=== PATIENT | female | born 1930 | race Caucasian/White ===

== ENCOUNTER → 2017-07-02 | Outpatient (CLI) | payer OTHER ==
[~2017-07-02] MED LIST: IOPAMIDOL (ISOVUE 370) 100 ML BTL IV ONE
== END ==
LOC: FIMAGING 10:02
PROVIDERS: ATTEND Surgery
DX: I65.23 Occlusion and stenosis of bilateral carotid arteries (principal); I77.3 Arterial fibromuscular dysplasia
CPT/HCPCS: 70498; Q9967

== ENCOUNTER → 2017-09-04 | Outpatient (CLI) | payer OTHER | LOC: FIMAGING 13:30 | PROVIDERS: ATTEND Family Medicine | DX: M48.54XA Collapsed vertebra, not elsewhere classified, thoracic region, initial encounter for fracture (principal); R05 Cough ==

== ENCOUNTER → 2017-09-14 | Outpatient (CLI) | payer OTHER | LOC: FIMAGING 14:26 | PROVIDERS: ATTEND Family Medicine | DX: M48.54XA Collapsed vertebra, not elsewhere classified, thoracic region, initial encounter for fracture (principal) ==

== ENCOUNTER 2017-09-17 13:12 | Day surgery (SDC) | payer OTHER ==
--- NOTE | 2017-09-17 14:18 | PDANEPAE ---
ANE Past Medical History - Cardiovascular History Hx Hypertension: Yes Hx Arrhythmias: No Hx Chest Pain: No Hx Coronary Artery / Peripheral Vascular Disease: Yes Hx CHF / Valvular Disease: No Hx Palpitations: No - Pulmonary History Hx COPD: No Hx Asthma/Reactive Airway Disease: No Hx Recent Upper Respiratory Infection: Yes Hx Oxygen in Use at Home: No Hx Sleep Apnea: No Pulmonary History Comment: Bronchitis 07/2017-resolved - Neurologic History Hx Cerebrovascular Accident: No Hx Seizures: No Hx Dementia: No - Endocrine History Hx Diabetes: No - Renal History Hx Renal Disorders: No - Liver History Hx Hepatic Disorders: No - Neurological & Psychiatric Hx Hx Neurological and Psychiatric Disorders: No - Cancer History Hx Cancer: No - Congenital Disorder History Hx Congenital Disorders: No - GI History Hx Gastrointestinal Disorders: No - Chronic Pain History Chronic Pain: Yes (back-osteoporosis) - Surgical History Prior Surgeries: Kyphoplasty-2011. Endarterectomy-2009. C section- ANE Review of Systems Review of Systems: - Exercise capacity METS (RN): 4 METS ANE Patient History - Allergies Allergies/Adverse Reactions: No Known Allergies Allergy (Verified 09/11/17 17:05) - Home Medications Home Medications: Aspirin [Aspirin 325 mg (*)] 325 mg PO DAILY@14 05/20/16 [Last Taken 05/19/16 14 :00] Atorvastatin Calcium [Lipitor 40 mg (*)] 40 mg PO DAILY@1900 05/20/16 [Last Taken 05/19/16 19:00] Carboxymethylcell/Hypromellose [Genteal Gel Drops] 1 - 2 drops EACHEYE PRN PRN 05/20/16 [Last Taken Unknown] Cholecalciferol Vit D3 [Vitamin D3 2000 units tab (OTC)] 2,000 units PO DAILY [Last Taken 05/19/16] Cyanocobalamin [Vitamin B12 (*)] 1,000 mcg PO DAILY 05/20/16 [Last Taken ] Herbals/Supplements -Info Only 1 ea PO DAILY 05/20/16 [Last Taken 05/19/16] Levothyroxine [Synthroid 88 mcg (*)] 88 mcg PO DAILY06 05/20/16 [Last Taken 06:00] Losartan Potassium [Cozaar] 100 mg PO DAILY 05/20/16 [Last Taken 05/20/16] MOTRIN 200 mg PO PRN 09/11/17 [Last Taken Unknown] - Anes Hx Anes Hx: no prior problems - Smoking Hx Smoking Status: Never smoked - Family Anes Hx Family Hx Anesthesia Complications: None ANE Labs/Vital Signs - Vital Signs Height: 167.64 cm Weight: 63.503 kg ANE Physical Exam - Airway Neck exam: FROM Mouth exam: normal dental/mouth exam - Pulmonary Pulmonary: no respiratory distress, no rales or rhonchi, clear to auscultation - Cardiovascular Cardiovascular: regular rate and rhythym, no murmur, rub, or gallop - ASA Status ASA Status: II ANE Anesthesia Plan Anesthesia Plan: general endotracheal anesthesia
[2017-09-17] MEDS ORDERED: DEXAMETHASONE 10 MG/ML VIAL IVP ONE ×2 (14:21→14:25)
[2017-09-17] MEDS ORDERED: ceFAZolin 2 GM/SWFI 2 GM/20 ML SYR IVP ONE ×2 (14:21→14:25)
[2017-09-17] MEDS ORDERED: NS 1,000 ML IV ONE ×2 (14:21→14:25)
[2017-09-17] MEDS ORDERED: fentaNYL 100 MCG/2 ML INJ IVP PRN ×2 (14:25→15:25)
[2017-09-17] MEDS ORDERED: ALTEPLASE 2 MG VIAL IVP PRN (14:25)
[2017-09-17] MEDS ORDERED: NALOXONE HCL 0.4 MG/ML INJ IVP PRN ×2 (14:25→15:25)
[2017-09-17] MEDS ORDERED: HEPARIN 10,000 UNIT/10 ML MDV IVP PRN (14:25)
[2017-09-17] MEDS ORDERED: FLUMAZENIL 0.5 MG/5 ML MDV IVP PRN (14:25)
[2017-09-17] MEDS ORDERED: MIDAZOLAM 2 MG/2 ML VIAL IVP PRN (14:25)
[2017-09-17] MEDS ORDERED: PROTAMINE SULFATE 50 MG/5 ML VIAL IVP PRN (14:25)
[2017-09-17] MEDS ORDERED: MEPERIDINE 25 MG/ML SYR IVP PRN (14:25)
[2017-09-17] MEDS ORDERED: GLUCAGON HCL 1 MG VIAL IVP PRN (14:25)
[2017-09-17] MEDS ORDERED: fentaNYL 100 MCG/2 ML INJ ONE (14:49)
[2017-09-17] MEDS ORDERED: PROPOFOL 200 MG/20 ML VIAL ONE (14:49)
[2017-09-17] MEDS ORDERED: ONDANSETRON 4 MG/2 ML VIAL ONE (14:50)
[2017-09-17] MEDS ORDERED: DEXAMETHASONE 4 MG/ML VIAL ONE ×2 (14:50)
[2017-09-17] MEDS ORDERED: SUCCINYLCHOLINE CHLORIDE 200 MG/10 ML SYR IVP ONE (14:53)
[2017-09-17] MEDS ORDERED: ceFAZolin 1 GM VIAL ONE ×2 (14:54)
[2017-09-17] MEDS ORDERED: PROMETHAZINE HCL 25 MG/ML INJ IVP PRN (15:25)
[2017-09-17] MEDS ORDERED: ENALAPRILAT DIHYDRATE 1.25 MG/ML VIAL IVP PRN (15:25)
[2017-09-17] MEDS ORDERED: ONDANSETRON 4 MG/2 ML VIAL IVP PRN ×2 (15:25→16:19)
[2017-09-17] MEDS ORDERED: HYDROCODONE/APAP 5/325 TAB PO PRN (15:25)
[2017-09-17] MEDS ORDERED: PHENYLEPHRINE HCL 100 MCG/ML SYR ONE ×2 (15:25→15:53)
[2017-09-17] MEDS ORDERED: BUPIVACAINE 0.5% 30 ML SDV ONE (15:31)
--- NOTE | 2017-09-17 16:17 | PDGENHP ---
History & Physical Chief Complaint: Severe back pain History of Present Illness: Debilitating interscapular back pain Pertinent Past, Social, Family History: Multiple previous compression fractures of thoracic and lumbar spine. Previous sacral vertebroplasty in 2010 by me. Relevant Physical Exam: Severe point tenderness of kyphotic upper thoracic spine at approximately T4. MRI demonstrates acute compression fracture (with edema of bone marrow) at T4. Cardiorespiratory Assessment: Cardiac: RRR, 88 bpm. 3/6 systolic ejection murmur. Lungs: clear to auscultation.
[2017-09-17] MEDS ORDERED: ONDANSETRON DISINTEGRATING 4 MG TAB PO PRN (16:19)
--- NOTE | 2017-09-17 16:27 | POSTANESTH ---
Post Anesthetic Evaluation Cardiovascular Status: Similar to Pre-Op Cond (A little hypertensive (166/84) on arrival. Will observe for now, treat if above 175.) Respiratory Status: Normal, Stable, Similar to Pre-op Cond. Level of Consciousness/Mental Status: Can Participate in Eval, Moderately Sleepy Pain Control: Adequate, Prn Tx Ordered Nausea/Vomiting Control: Adequate, Prn Tx Ordered Complications Possibly Related to Anesthesia: None Noted
[2017-09-17] MEDS ORDERED: ENALAPRILAT DIHYDRATE 1.25 MG/ML VIAL ONE ×3 (16:41→17:15)
[2017-09-17] MEDS: ENALAPRILAT DIHYDRATE 1.25 MG/ML VIAL IVP PRN ×2 (17:00→17:16)
[2017-09-17] MEDS ORDERED: hydrALAZINE 20 MG/ML VIAL ONE (17:29)
[2017-09-17] MEDS: hydrALAZINE 20 MG/ML VIAL IVP PRN ×2 (17:35→17:45)
[2017-09-17 17:59] VITALS: PULSE 80
[2017-09-17 18:02] VITALS: RESP 18
[2017-09-17 19:29] VITALS: BP 150/63
[2017-09-17 19:30] VITALS: TEMP 98.6; O2SAT 92
== END 2017-09-17 19:30 | disposition home or self-care (01) ==
LOC: FIMAGING 13:12
PROVIDERS: ATTEND Family Medicine
PROC: 0PU43JZ Supplement Thoracic Vertebra with Synthetic Substitute, Percutaneous Approach (ICD-10-PCS; principal; 2017-09-17 16:19)
DX: M48.54XA Collapsed vertebra, not elsewhere classified, thoracic region, initial encounter for fracture (principal)
CPT/HCPCS: J0330; J0360; J0690; J1100; J2370; J2405; J2704; J3010